=== PATIENT | female | born 1985 | race Caucasian/White ===

== ENCOUNTER 2021-08-14 05:35 | Outpatient (CLI) | payer OTHER ==
[~2021-08-14] VITALS: Ht 162.6 cm; Wt 91.4 kg
[2021-08-14] MEDS ORDERED: NAPR-915 PO (09:37)
[2021-08-14] MEDS ORDERED: TRAM50TA3 PO (09:37)
[2021-08-15] MEDS ORDERED: ACET-93 PO (13:47)
[2021-08-15] MEDS ORDERED: OXC5T PO ×2 (13:47→15:16)
[2021-08-16] MEDS ORDERED: OXYC5TAB PO (08:55)
== END 2021-08-14 09:49 | disposition home or self-care (01) ==
LOC: PREOP 05:35
PROVIDERS: ATTEND Obstetrics & Gynecology
DX: Z01.818 Encounter for other preprocedural examination (principal)

== ENCOUNTER 2021-08-15 11:09 | Day surgery (SDC) | payer OTHER ==
[~2021-08-15] VITALS: Ht 162.6 cm; Wt 91.4 kg
[2021-08-15] VITALS (10 sets, daily range): BP systolic 105–139; BP diastolic 67–88
[~2021-08-15 11:09] MED LIST: NAPR-915 PO; TRAM50TA3 PO
--- OUTSIDE RECORDS SUMMARY | 2021-08-15 11:13 | XMS REPORT | Clinical Summary ---
Author Author [facility] Organization [facility] Address Unknown Phone Unavailable Care Team Providers Care [place] Bobber Name Role Phone PCP Unavailable Allergies Not on File Medications Not on file Active Problems Not on file Encounters Not on filefrom Last 3 Months Immunizations Not on file Social History Date Tobacco Use Types Packs/Day Years Used Never Assessed Sex Assigned at Date Recorded Not on file Last Filed Vital Signs Not on file Plan of Treatment Health Maintenance Due Date Last Done Comments Cervical Cancer: 2004 Screening Goals Not on file Implants Not on file Procedures Not on filefrom Last 3 Months Results Not on filefrom Last 3 Months Additional Health Concerns Not on file Insurance Type Payer Benefit Subscriber ID Effective Phone Address Plan / Dates Group [employer] [id number] 2020-P CENTER[facility] resent O-GRP#[id number]
[2021-08-15] MEDS ORDERED: ceFAZolin 2 GM IV Premixed 50 ML IV ONE (11:30)
[2021-08-15] MEDS ORDERED: LIDOCAINE/EPI 1%-1:200,000 (XYLOCAINE) 30 ML VIAL ONE (11:43)
[2021-08-15] MEDS: LACTATED RINGERS 1,000 ML IV PRN ×2 (12:08→13:02)
--- NOTE | 2021-08-15 12:08 | Progress Note-Pre Operative ---
Pre-Operative Progress Note H&P Reviewed The H&P was reviewed, patient examined and no changes noted. Date Seen by Provider: Aug 15, 2021 Time Seen by Provider: 12:00 Date H&P Reviewed: Aug 15, 2021 Time H&P Reviewed: 12:00 Pre-Operative Diagnosis: COMPLEX RIGHT OVARIAN CYST BENJAMIN SOLIS DO Aug 15, 2021 12:08
[2021-08-15] MEDS ORDERED: fentaNYL INJ 100 MCG/2 ML AMP ONE (12:16)
[2021-08-15] MEDS ORDERED: MIDAZOLAM 2 MG/2 ML (VERSED) VIAL ONE (12:16)
[2021-08-15] MEDS ORDERED: ROCURONIUM 10 MG/ML 5 ML SYRINGE IV ONE (13:33)
[2021-08-15] MEDS ORDERED: proPOfol 200 MG/20 ML (DIPRIVAN) VIAL IV ONE (13:33)
[2021-08-15] MEDS ORDERED: LIDOCAINE PF 2% 5 ML (XYLOCAINE) VIAL ONE (13:33)
[2021-08-15] MEDS ORDERED: ONDANSETRON 4 MG/2 ML (SDV) Z0FRAN ONE (13:33)
[2021-08-15] MEDS ORDERED: SEVOFLURANE (ULTANE) 15 ML INHAL SOLN ONE (13:34)
[2021-08-15] MEDS ORDERED: KETOROLAC 30 MG/ML VIAL ONE (13:34)
[2021-08-15] MEDS ORDERED: GLYCOPYRROLATE 0.2 MG/ML (ROBINUL) 2 ML VIAL ONE (13:40)
[2021-08-15] MEDS ORDERED: NEOSTIGMINE 3 MG/3 ML VIAL ONE (13:40)
[2021-08-15] MEDS ORDERED: KETOROLAC 30 MG/ML VIAL IVP ONE (13:45)
[2021-08-15] MEDS ORDERED: ACETAMINOPHEN 500 MG TAB (TYLENOL) PO PRN (13:45)
--- NOTE | 2021-08-15 13:46 | Operative Report ---
Operative Report Date of Procedure/Surgery Aug 15, 2021 Surgeon (s) BENJAMIN SOLIS DO Performance Reporter (s): NA Post-Operative Diagnosis right ovarian cyst, right tuboovarian adhesions, cystic lesion in right culdesac/uterosacral ligament, Fortunato Masters window functional cystic lesion noted on the left ovary omental adhesions to umbilicusand right pelvic side wall Procedure Performed robotic assisted bilateral salpingectomy right oophorectomy lysis of adhesions Description of Procedure Anesthesia Type: General Estimated blood loss (mL): minimal Specimen(s) collected/removed bilateral tubes right ovary peritoneal biopsy Description of the Procedure After informed consent was obtained, patient was taken into the operating room where general anesthetic was found to be adequate. She was prepped and draped in the usual sterile fashion in the dorsal lithotomy position. A Smith catheter was placed. A speculum was placed in the vagina. The cervix was visualized and the anterior lip was grasped with a sharp toothed tenaculum. The uterus was sounded and depth was approximately 6.5 centimeters. I placed the Belen device (6.5 cm) and a 3.0 cm collar was advanced over the cervix. I in serted the Belen without difficulty, inflating the balloon and securing it around the fornix of the cervix. The collar was then secured with sutures at 12 o'clock. Attention was then turned to the patient's abdomen. A supraumbilical incision was made about 8 mm. A Veress needle was inserted and I confirmed intraabdominal placement with a drop in pressure and the saline drop test. The opening pressure was 7 mmHg. I then insufflated the abdomen to a maximum of 15 mmHg with warmed CO2 gas. An 8 mm trocar was placed under direct visualization. Then I placed an additional 8 mm trocar in the left abdomen approximately 15 cm lateral to the umbilicus. The third robotic port was placed about 12 cm lateral to the right of the umbilical placement. This was an 8 mm trocar. These were placed under direct visualization of the laparoscope. 0.25% Marcaine was injected prior to placem ent of all trocars. When all placements were confirmed, the patient was placed in steep Trendelenburg allowing adequate visualization and the robot was brought in for docking. The docking was accomplished without difficulty. I then took over the command of the robot utilizing the synchroseal and monopolar yudy. There was an adhesion of the omentum to the umbilicus and this was taken down with yudy. There was good hemostasis. The then took down the peritubal adhesions on the right tube and ovary. These were filmy. The right ovary did not appear to be torsed, but the ovary was adherent to the tube and the ovarian fossa on the right. The cyst that was concerning took up the majority of the right ovary. For this reason, and the adhesions, I opted to removed the ovary to avoid the risk of bleeding. I then clamped the right infundibulopelvic ligament, cauterized and then incised with the yudy. I then clamped the uterine ovarian ligament in a similar fashion, cauterized and transected. Attention was now turned to the left side. This side did not have the adhesions. There was a simple, functional cyst noted. I incised the mesosalpinx with the yudy and then clamped at the uterus, transected and excised the tube. At this point, I investigated the Fortunato Masters window in the right culdesac. There was a cystic lesion noted at the base of this and I excised this with the yudy. There did not appear to be active endometriosis, but this finding is suggestive of that. At this point I irrigated the pelvis, and there was good hemostasis. I then undocked the robot and brought it back to laparoscopy. I then extended the supraumbilical incision and inserted a 12 mm trocar. I then inserted an endocatch and placed the three specimens in the bag. I removed these and then sent for pathology. I now removed the instruments from the abdomen. I then closed the fascial inci portia at the supraumbilical incision with 0 Vicryl and then closed the skin incisions with 4-0 Monocryl and Skin Affix. Bandages were placed. I then turned attention to the vagina where the manipulator was removed from the vagina. There was minimal adhesion noted. The patient was now awakened and taken to recovery in a stable condition. Sponge, lap, needle and instrument counts were correct times two. the Smith will be removed in the recovery room. Findings of the Procedure multicystic right ovary with solid component, peritubal adhesions small cystic lesion in the right culdesac/uterosacral ligament omental adhesion inferior to the umbilicus adhesions in the right pelvic, omental Allergies and Home Medications Allergies Coded Allergies: No Known Drug Allergies (Unverified , 08/14/21) Patient Home Medication List Home Medication List Reviewed: Yes Acetaminophen (Acetaminophen) 500 Mg Tablet, 1,000 MG PO Q8H PRN for PAIN-MILD (1-4) Prescribed by: BENJAMIN SOLIS on 08/15/21 1347 Naproxen (Naproxen) 500 Mg Tablet, 500 MG PO BID, (Reported) Entered as Reported by: STARLA IRAHETA on 08/14/21936 Last Action: Last Taken Edited Tramadol HCl (Tramadol HCl) 50 Mg Tablet, 50 MG PO TID PRN for PAIN-MILD (1-4), (Reported) Entered as Reported by: STARLA IRAHETA on 08/14/21936 Last Action: Last Taken Edited BENJAMIN SOLIS DO Aug 15, 2021 13:45
[2021-08-15] MEDS ORDERED: OXC5T PO ×2 (13:47→15:16)
[2021-08-15] MEDS ORDERED: ACET-93 PO (13:47)
--- NOTE | 2021-08-15 13:51 | Discharge Inst-Women's Service ---
Discharge Inst-Women's Serv Depart Medication/Instructions New, Converted or Re-Newed RX: RX on Chart Final Diagnosis complex right ovarian cyst probable endometriosis omental adhesions Problems Reviewed?: Yes Consults/Follow Up Additional Follow Up: Yes Activity Activity: Activity as Tolerated Driving Instructions: No Driving for 24 Hours NO SMOKING: NO SMOKING Nothing Inside Vagina: No Douching, No [place] (2 weeks) Diet Discharge Diet: No Restrictions Symptoms to Report to : Swelling Increased, Bleeding Excessive, Pain Increased, Fever Over 101 Degrees F, Vaginal Bleeding Increase, Vaginal Discharge Foul For Any Problems or Questions: Contact Your Physician Skin/Wound Care Infection Signs and Symptoms: Increased Redness, Foul Odor of Wound, Increased Drainage, Skin Itchy or Has a Rash, Increased Swelling, Temperature Above 101 F Operative Area Clean and Dry: Keep Incision Clean/Dry, You May Remove Bandage (in 2 days, or if soiled or wet) Stitches/Gutierrez/Dermabond: Dermabond Bathing Instructions: BENJAMIN Toure DO Aug 15, 2021 13:51
[2021-08-15] MEDS ORDERED: morphine INJ 10 MG/ML 1ML (SYR OR VIAL) ONE (14:06)
--- NOTE | 2021-08-15 15:39 | Anesthesia-General Post-Op ---
General Patient Condition Mental Status/LOC: Same as Preop Cardiovascular: Satisfactory Nausea/Vomiting: Absent Respiratory: Satisfactory Pain: Controlled Complications: Absent Post Op Complications Complications None Follow Up Care/Instructions Patient Instructions None needed. Anesthesia/Patient Condition Patient Condition Patient is doing well, no complaints, stable vital signs, no apparent adverse anesthesia problems. No complications reported per nursing. GENARO MOSLEY CRNA Aug 15, 2021 15:39
[2021-08-15] MEDS ORDERED: IBUPROFEN 600 MG (MOTRIN) TAB PO SCH (18:00)
[2021-08-16] MEDS ORDERED: OXYC5TAB PO (08:55)
== END 2021-08-15 16:10 | disposition home or self-care (01) ==
LOC: SDC 11:09
PROVIDERS: ATTEND Obstetrics & Gynecology
DX: D20.1 Benign neoplasm of soft tissue of peritoneum (principal); N83.01 Follicular cyst of right ovary; N83.11 Corpus luteum cyst of right ovary; N83.8 Other noninflammatory disorders of ovary, fallopian tube and broad ligament; N73.6 Female pelvic peritoneal adhesions (postinfective); N83.291 Other ovarian cyst, right side; E66.9 Obesity, unspecified; Z90.89 Acquired absence of other organs; Z79.891 Long term (current) use of opiate analgesic; Z79.899 Other long term (current) drug therapy; Z83.3 Family history of diabetes mellitus; Z82.49 Family history of ischemic heart disease and other diseases of the circulatory system
CPT/HCPCS: 84703; 87081